=== PATIENT | male | born 1990 | race African-American/Black ===

== ENCOUNTER 2020-08-02 20:13 | Emergency (ER) | payer OTHER, SELFPAY ==
[2020-08-02 21:28] VITALS: BP 136/88; PULSE 72; RESP 16; TEMP 36.9; O2SAT 98; BMI 29.0
--- NOTE | 2020-08-02 22:57 | PC.NURSE ---
slight external swelling left upper mouth. pt states has been painful x 2 days.
--- NOTE | 2020-08-02 23:38 | ED.DENTAL ---
HPI - Dental/Oral General Chief complaint: Dental/Oral Stated complaint: toothace Time Seen by Provider: 08/02/20 23:02 Source: patient Mode of arrival: ambulatory Limitations: no limitations History of Present Illness HPI Narrative: Patient comes emergency room complaining of dental pain. Patient states that he has been told that he needs a root canal and a molar in the left maxilla, states that yesterday started hurting, the cheek started becoming more swollen. Patient denies fever chills. Patient states that he will go to a walk-in clinic tomorrow. Patient denies any tooth injury MD Complaint: tooth pain Related Data Previous Rx's Medication Instructions Recorded ketorolac 10 mg PO TID PRN #10 tab 08/02/20 penicillin V potassium 500 mg PO BID #20 tab 08/02/20 Allergies Allergy/AdvReac Type Severity Reaction Status Date / Time No Known Allergies Allergy Verified 08/02/20 23:27 Review of Systems Review of Systems: Constitutional : No Weight loss, No Fever, No Chills, No Night Sweats, No Fatigue, No Malaise ENT/Mouth : No Hearing loss, No Ear Pain, No Nasal Congestion, No Sinus Pain, No Hoarseness, No sore throat, No Rhinorrhea, No Swallowing Difficulty complaining of dental pain in the left maxillary aspect and gum pain Eyes: No Eye Pain, No Swelling, No Redness, No Foreign Body, No Discharge, No Vision Changes Cardiovascular : No Chest Pain, No SOB, No Dyspnea on Exertion, No Orthopnea, No Edema, No Palpitations Respiratory : No Cough, No Sputum, No Wheezing, No Smoke Exposure, No Dyspnea Gastrointestinal : No Nausea, No Vomiting, No Diarrhea, No Constipation, No abdominal Pain, No Hematochezia, No Melena Genitourinary : no irregular bleeding, No Dysuria, No Urinary Frequency, No Hematuria, No Urinary Incontinence, No Urgency, No Flank Pain, No Urinary Flow Changes, No Hesitancy Musculoskeletal : No joint pain, No Myalgias, No Joint Swelling Skin : No Skin Lesions, No rash Neuro : No Weakness, No Numbness, No Paresthesias, No Loss of Consciousness, No Dizziness, No Headache Psych : No Anxiety/Panic, No Depression, No SI/HI/AH/VH, No Social Issues, Heme/Lymph: No Bruising, No Bleeding,No Lymphadenopathy Endocrine : No Polyuria, No Polydipsia, No Temperature Intolerance [facility] Past Medical History Medical History No known health problems Social History Social History Advance Directives: No Physical Exam Vital Signs: Vital Signs: Last Vital Signs Temp 98.4 F 08/02/20 21:28 Pulse 72 08/02/20 21:28 Resp 16 08/02/20 21:28 BP 136/88 08/02/20 21:28 Pulse Ox 98 08/02/20 21:28 Body Mass Index 29.0 Appearance: Alert. Oriented X3. No acute distress. Eyes: Pupils equal, round and reactive to light. ENT: Pharynx normal. Pain to palpation over teeth number 14, 15, 16, no cracked/chipped teeth, mild facial swelling on the left side, no pain under the tongue Neck: Normal inspection. Neck supple. No lymph nodes noted. No crepitus CVS: Normal heart rate and rhythm. Pulses normal. Normal S1 and S2 Respiratory: No respiratory distress. Breath sounds normal. No Wheezing. No rales Abdomen: Soft and nontender. No rigidity. No distention. good BS x4 Skin: Skin warm and dry. Normal skin color. Normal skin turgor. Extremities: No lower extremity edema. No lower extremity edema. No Lacerations. No Rash Neuro: Oriented X 3. No motor deficit. No sensory deficit. Moving all extermities. No slurred speech. Course Course Course Narrative: Patient was given 1 dose of IM Toradol and started on p.o. antibiotics (penicillin PO), patient will follow-up with his dentist tomorrow. Discharge Plan Discharge Clinical Impression: Dental abscess Patient Disposition: Home, Self-Care Instructions: Dental Abscess (ED) Additional Instructions: Please follow-up with your primary care physician tomorrow. If you have any worsening or new symptoms, please return to the emergency room or call 911 Prescriptions: New penicillin V potassium 500 mg tablet 500 mg PO BID Qty: 20 RF: 0 ketorolac 10 mg tablet 10 mg PO TID PRN (Reason: pain) Qty: 10 RF: 0
[2020-08-03] MEDS: Ketorolac Tromethamine 60 MG/2 ML VIAL IM (00:24)
[2020-08-03] MEDS: Penicillin V Potassium 250 MG TABLET 500 MG PO (00:24)
== END 2020-08-03 00:35 | disposition home or self-care (01) ==
PROVIDERS: Emergency Provider Emergency Medicine
DX: K04.7 Periapical abscess without sinus (principal); K08.89 Other specified disorders of teeth and supporting structures
CPT/HCPCS: 96372; 99283; 99284; J1885